=== PATIENT | female | born 1960 | race Caucasian/White ===

== ENCOUNTER 2021-11-22 14:17 | Emergency (ER) | payer MEDICARE, OTHER ==
[~2021-11-22] VITALS: Ht 157.5 cm; Wt 82.7 kg
[~2021-11-22 14:17] MED LIST: GABADONE CAPSU1 EACH PO; NEURONTIN300 MG PO; XANAX0.25 MG PO; ZOLOFT20 MG/1 ML PO
--- OUTSIDE RECORDS SUMMARY | 2021-11-22 14:20 | XMS ---
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 Amanda has no Care Guidelines for this patient. Gregory VISIT COUNT (12 MO.) 1 OBIE Elizabeth TOTAL 1 NOTE: Visits indicate total known visits. ED/C VISIT TRACKING (12 MO.) 11/22/2021 14:18 OBIE [facility] [place] TYPE: Emergency COMPLAINT: - RIB PAIN INPATIENT VISIT TRACKING (12 MO.) No inpatient visits to display in this time frame [email or web address]
[2021-11-22] MEDS ORDERED: GABAPENTIN800 MG PO (14:32)
[2021-11-22] MEDS ORDERED: SERTRALINE HCL100 MG PO (14:32)
[2021-11-22] MEDS ORDERED: DOXEPIN HCL50 MG PO (14:32)
[2021-11-22] MEDS ORDERED: GABAPENTIN400 MG PO (14:32)
[2021-11-22] MEDS ORDERED: LIDODERM1 EACH TOP (15:38)
[2021-11-22] MEDS ORDERED: NAPROSYN500 MG PO (15:38)
== END 2021-11-22 15:47 | disposition home or self-care (01) ==
LOC: ED 14:17
DX: S20.212A Contusion of left front wall of thorax, initial encounter (principal); X58.XXXA Exposure to other specified factors, initial encounter; F17.200 Nicotine dependence, unspecified, uncomplicated; Z88.5 Allergy status to narcotic agent; Z88.8 Allergy status to other drugs, medicaments and biological substances; Z79.899 Other long term (current) drug therapy
CPT/HCPCS: 71101; 87502; 96372; 99283-25; J1885; U0003

== ENCOUNTER 2022-11-09 17:21 | Emergency (ER) | payer MEDICARE, OTHER ==
[~2022-11-09] VITALS: Ht 157.5 cm; Wt 81.7 kg
[~2022-11-09 17:21] MED LIST changes: +DOXEPIN HCL50 MG PO; +GABAPENTIN400 MG PO; +GABAPENTIN800 MG PO; +LIDODERM1 EACH TOP; +NAPROSYN500 MG PO; +SERTRALINE HCL100 MG PO
--- OUTSIDE RECORDS SUMMARY | 2022-11-09 17:24 | XMS ---
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 E.DLizbeth VISIT COUNT (12 MO.) 2 OBIE Elizabeth TOTAL 2 NOTE: Visits indicate total known visits. 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
[2022-11-09] MEDS ORDERED: METHADONE HCL40 MG PO (17:35)
[2022-11-09 18:25] VITALS: BP 139/74
== END 2022-11-09 18:25 | disposition other institution, planned readmission (95) ==
LOC: ED 17:21
DX: R56.9 Unspecified convulsions (principal); F17.200 Nicotine dependence, unspecified, uncomplicated; Z88.5 Allergy status to narcotic agent; Z88.8 Allergy status to other drugs, medicaments and biological substances
CPT/HCPCS: 80053; 85025; 99284

== ENCOUNTER 2024-03-14 17:10 | Emergency (ER) | payer MEDICARE, OTHER ==
[~2024-03-14] VITALS: Ht 157.5 cm; Wt 77.6 kg
[~2024-03-14 17:10] MED LIST changes: +METHADONE HCL40 MG PO
[2024-03-14 18:23] LABS: BASOPHILS 0.7 % (0-2); EOSINOPHILS 2.4 % (0-6); HEMATOCRIT 38.3 % (35.0-50.0); HEMOGLOBIN 13.2 g/dL (12.0-18.0); LYMPHOCYTES 38.5 % (24-44); MCH 31.5 (27-36); MCHC 34.5 g/dl (30-36); MCV 91.1 fl (81-99); MONOCYTES 7.7 % (0-12); NEUTROPHILS 50.7 % (39-80); PLATELET COUNT 170 K/uL (140-440); RBC 4.21 M/ul (4.3-5.7); RDW 13.6 (10.5-15.0)
[2024-03-14 18:37] LABS: ALBUMIN 2.9 g/dL (3.4-5.0); ALBUMIN/GLOBULIN RATIO 0.78 (1.1-2.4); ANION GAP 10.7 (7-21); BILIRUBIN, TOTAL 0.4 ng/dL (0.2-1.0); BUN/CREATININE RATIO 23.52 (6.0-28.6); CALCIUM 8.6 mg/dL (8.5-10.1); CREATININE, SERUM 0.68 mg/dL (0.55-1.02); POTASSIUM 3.7 mmol/L (3.5-5.1); PROTEIN, TOTAL 6.6 g/dL (6.4-8.2)
[2024-03-14 19:20] VITALS: BP 109/70
== END 2024-03-14 19:20 | disposition home or self-care (01) ==
LOC: ED 17:10
PROVIDERS: Emergency Medicine
DX: B35.1 Tinea unguium (principal); G89.29 Other chronic pain; F17.200 Nicotine dependence, unspecified, uncomplicated; Z88.5 Allergy status to narcotic agent; Z88.8 Allergy status to other drugs, medicaments and biological substances; Z79.899 Other long term (current) drug therapy
CPT/HCPCS: 36415; 80053; 85025; 99283